=== PATIENT | male | born 1980 | race Caucasian/White ===

== ENCOUNTER 2017-06-24 10:41 | Emergency (ER) | payer MEDICARE, MEDICAID ==
[2017-06-24] MEDS ORDERED: DEXAMETHASONE 10 MG/ML VIAL PO STA (13:00)
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
[2017-06-24] MEDS ORDERED: CHERRY SYRUP 10 ML UDC PO ONE (13:14)
--- NOTE | 2017-06-24 13:40 | CT Report ---
EXAM: CT MAXILLOFACIAL WITHOUT CONTRAST EXAM DATE: 06/24/2017 12:38 PM. CLINICAL HISTORY: Mass in the left upper medial orbit. COMPARISONS: None. TECHNIQUE: Thin-section axial images were acquired of the face without contrast. Post-processing: Cor onal and sagittal reformats. Other: None. In accordance with CT protocol optimization, one or more of the following dose reduction techniques w ere utilized for this exam: automated exposure control, adjustment of mA and/or KV based on patient s ize, or use of iterative reconstructive technique. FINDINGS: Soft Tissue: The infratemporal fossa and parapharyngeal spaces are unremarkable. Orbits: Symmetric and unremarkable. Bones: Status post plate and screw fixation of the mandibular symphysis, anterior lateral wall right maxillary sinus, bilateral frontozygomatic sutures, superior medial wall left orbit, and anterior wal ls left and right paramedian frontal sinuses extending to the nasion. Additional screw fixation ante rior right maxillary alveolus. Multiple nasal fractures. There are multiple areas of bony dehiscence predominantly involving the frontal bone at the anterior galeano and floors of the left greater than r ight frontal sinuses, anterior superior orbital rims, and anterior aspect of the ethmoid sinuses. Th ere is soft tissue swelling overlying overlying the preseptal superior medial left orbit 4:117 throug h 127 which extends into the frontal sinus and may be related to prior sinus obliteration. The possib ility of superimposed infection or occluded nasolacrimal duct not excluded. The orbits themselves are symmetric with no evidence of retrobulbar pathology. Temporomandibular Joints: The temporomandibular joints are symmetric and normally located. Sinuses: Opacified frontal sinuses bilaterally. Scattered retention cysts and membrane thickening in the remaining paranasal sinuses.. Mastoid air cells and middle ear cavities clear. IMPRESSION: Extensive posttraumatic and postsurgical changes involving the facial bones. 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 There is increased soft tissue density in the preseptal region anterior to the superior medial left orbit which appears continuous with the frontal sinus material likely related to herniation of the sinus contents. Superimposed infection or left nasal lacrimal duct occlusion not excluded. The orbital contents are symmetric and unremarkable bilaterally. [facility] Referring Provider Line: [phone] SITE ID: [id number]
[2017-06-24 14:01] VITALS: BP 132/88
== END 2017-06-24 14:30 | disposition home or self-care (01) ==
LOC: ED 10:41
DX: J01.11 Acute recurrent frontal sinusitis (principal); J45.909 Unspecified asthma, uncomplicated
CPT/HCPCS: 70486; 93005; 99283; A9270

== ENCOUNTER 2021-11-06 11:28 | Outpatient (CLI) | payer MEDICARE, MEDICAID ==
[2021-11-06 23:36] LABS: CHLAMYDIA TRACHOMATIS DNA NEGATIVE (NEGATIVE); NEISSERIA GONORRHOEAE DNA NEGATIVE (NEGATIVE)
[2021-11-07 05:10] LABS: RPR Non Reactive (Non Reactive)
[2021-11-07 06:09] LABS: HCV AB <0.1 s/co ratio (0.0-0.9)
[2021-11-07 08:09] LABS: HSV 1 IGG TYPE SPEC <0.91 index (0.00-0.90); HSV 2 IGG TYPE SPEC <0.91 index (0.00-0.90)
[2021-11-09 03:09] LABS: HIV SCREEN 4TH GENERATION Non Reactive (Non Reactive)
== END 2021-11-06 11:29 | disposition home or self-care (01) ==
LOC: LAB.S 11:28
PROVIDERS: ATTEND Physician Assistant
DX: N48.1 Balanitis (principal); Z11.3 Encounter for screening for infections with a predominantly sexual mode of transmission
CPT/HCPCS: 36415; 81599; 86592; 86695; 86696; 86803; 87491; 87591; G0475; 87389; 87661

== ENCOUNTER 2023-05-23 12:27 | Outpatient (CLI) | payer MEDICARE, MEDICAID ==
[2023-05-23 14:38] LABS: BASOPHILS # (AUTO) 0.1 10^3/uL (0.0-0.1); BASOPHILS % (AUTO) 0.9 %; EOSINOPHILS # (AUTO) 0.3 10^3/uL (0.0-0.7); EOSINOPHILS % (AUTO) 3.3 %; HCT - HEMATOCRIT 46.7 % (42.0-52.0); HGB - HEMOGLOBIN 15.7 g/dL (14.0-18.0); LYMPHOCYTES # (AUTO) 1.5 10^3/uL (1.5-3.5); LYMPHOCYTES % (AUTO) 20.2 %; MEAN CORPUSCULAR HEMOGLOBIN 31.5 pg (27.0-31.0); MEAN CORPUSCULAR HGB CONC 33.6 g/dL (32.0-36.0); MEAN CORPUSCULAR VOLUME 93.6 fL (80.0-94.0); MEAN PLATELET VOLUME 10.4 fL (7.4-11.4); MONOCYTES # (AUTO) 0.7 10^3/uL (0.0-1.0); MONOCYTES % (AUTO) 8.6 %; NEUTROPHILS % (AUTO) 66.2 %; PLT - PLATELET COUNT 205 10^3/uL (130-450); RED BLOOD COUNT 4.99 10^6/uL (4.70-6.10); RED CELL DISTRIBUTION WIDTH 12.9 % (12.0-15.0); WHITE BLOOD COUNT 7.5 x10^3/uL (4.8-10.8)
[2023-05-23 16:18] LABS: ALBUMIN 4.7 g/dL (3.2-5.5); ALBUMIN/GLOBULIN RATIO 1.7 (1.0-2.2); ALKALINE PHOSPHATASE 62 IU/L (42-121); ALT ALANINE AMINOTRANSFERASE 36 IU/L (10-60); AST ASPARTATE AMINOTRANSFERASE 22 IU/L (10-42); BILIRUBIN,TOTAL 0.7 mg/dL (0.2-1.0); BUN - BLOOD UREA NITROGEN 13 mg/dL (6-20); CALCIUM 9.7 mg/dL (8.5-10.3); CARBON DIOXIDE - CO2 28 mmol/L (21-32); CHLORIDE 103 mmol/L (101-111); CHOLESTEROL 261 mg/dL; CREATININE 0.7 mg/dL (0.6-1.3); GFR - MDRD 123 (>89); GLUCOSE 88 mg/dL (74-104); HDL CHOLESTEROL 52 mg/dL; LDL CHOLESTEROL,CALCULATED 152 mg/dL; LDL/HDL RATIO 2.9 (<3.6); POTASSIUM 4.3 mmol/L (3.5-4.5); SODIUM 138 mmol/L (135-145); TOTAL PROTEIN 7.4 g/dL (6.4-8.9); TRIGLYCERIDES 285 mg/dL (48-352); VLDL CHOLESTEROL 57 mg/dL
== END 2023-05-23 12:28 | disposition home or self-care (01) ==
LOC: LAB.S 12:27
PROVIDERS: ATTEND Physician Assistant Medical
DX: I10 Essential (primary) hypertension (principal); Z13.9 Encounter for screening, unspecified
CPT/HCPCS: 36415; 80053; 80061; 83721; 84443; 85025

== ENCOUNTER 2024-05-22 17:41 | Observation (INO) ==
[2024-05-22 18:06] LABS: BASOPHILS # (AUTO) 0.1 10^3/uL (0.0-0.1); BASOPHILS % (AUTO) 0.5 %; EOSINOPHILS # (AUTO) 0.3 10^3/uL (0.0-0.7); EOSINOPHILS % (AUTO) 1.9 %; HCT - HEMATOCRIT 45.1 % (42.0-52.0); HGB - HEMOGLOBIN 15.8 g/dL (14.0-18.0); LYMPHOCYTES # (AUTO) 1.8 10^3/uL (1.5-3.5); LYMPHOCYTES % (AUTO) 13.6 %; MEAN CORPUSCULAR HEMOGLOBIN 31.7 pg (27.0-31.0); MEAN CORPUSCULAR VOLUME 90.4 fL (80.0-94.0); MEAN PLATELET VOLUME 9.9 fL (7.4-11.4); MONOCYTES # (AUTO) 1.1 10^3/uL (0.0-1.0); MONOCYTES % (AUTO) 8.1 %; NEUTROPHILS % (AUTO) 75.3 %; PLT - PLATELET COUNT 270 10^3/uL (130-450); RED BLOOD COUNT 4.99 10^6/uL (4.70-6.10); RED CELL DISTRIBUTION WIDTH 12.7 % (12.0-15.0); WHITE BLOOD COUNT 13.2 x10^3/uL (4.8-10.8)
--- NOTE | 2024-05-22 18:12 | ED Physician Documentation ---
History of Present Illness Stated complaint Stated Complaint: ABD PX/N Chief complaint Chief Complaint: Abd Pain History obtained from History obtained from: Patient History of Present Illness Timing: Prior to arrival Additonal information Additional information: . Patient is a 43-year-old male presenting to the emergency department with lower abdominal bloating and nausea. Symptoms have been going on for about 1 day. He notes he was feeling a little uncomfortable the last few days but symptoms significantly worsened today. He has a history of a kidney stone as well as history of IBS. He notes symptoms feel similar to both but significantly worse than his regular IBS symptoms. He is not taking medications at home. He has not taken anything for his symptoms. No vomiting but multiple episodes of diarrhea today. This is not abnormal for his symptoms of IBS though no black bloody stools. Patient was able to eat chicken noodle soup and a croissant earlier today. No fevers chills viral URI symptoms. No history of abdominal surgeries. He is urinating normally. Meds/Allgy Home Medications Ambulatory Orders Medication Instructions Recorded Confirmed amoxicillin 875 mg-potassium 1 ea PO Q12H #20 tabs 06/24/17 clavulanate 125 mg tablet Allergies Allergies Allergy/AdvReac Type Severity Reaction Status Date / Time No Known Drug Allergies Allergy Verified 05/22/24 17:48 PFSH Social History Social History Smoking Status: Never smoker Do you feel safe in your home environment?: Yes Suffered physical, verbal, emotional, or financial abuse?: No Exam Constitutional normal general appearance HENMT normocephalic and head/scalp atraumatic Eyes PERRL, EOMs intact bilaterally and conjunctivae normal Neck/C-Spine visual inspection normal Lymph no lymphadenopathy noted Chest inspection of chest normal Respiratory breath sounds equal bilaterally, normal respiratory effort and clear to auscultation bilaterally Cardiovascular normal heart rate noted, regular rhythm noted, no gallop and no rub Gastrointestinal Abdomen is soft no rebound guarding active bowel sounds appreciated lower abdominal tenderness on palpation no CVA tenderness appreciated. Mild abdominal distention but no palpable fluid wave appreciated. Genitourinary no CVA tenderness Extremities normal to inspection Results Vitals Vitals: Vital Signs - 24 hr 05/22/24 17:46 05/22/24 18:34 05/22/24 19:29 Temperature 37.0 C Temperature Source Temporal Artery Scan Pulse Rate 62 Respiratory Rate 18 Blood Pressure 141/87 H O2 Saturation 99 O2 Source Room air Pain Intensity 7 8 5 05/22/24 19:59 05/22/24 21:00 05/22/24 21:17 Temperature Temperature Source Pulse Rate 60 Respiratory Rate 20 Blood Pressure 150/94 H O2 Saturation 96 O2 Source Room air Pain Intensity 5 5 05/22/24 21:18 05/22/24 21:57 05/22/24 22:40 Temperature Temperature Source Pulse Rate 65 Respiratory Rate 16 Blood Pressure 162/99 H O2 Saturation 99 O2 Source Pain Intensity 5 6 05/22/24 22:49 Temperature Temperature Source Pulse Rate Respiratory Rate Blood Pressure O2 Saturation O2 Source Pain Intensity 10 Oxygen O2 Source Room air Labs Labs: Laboratory Tests 05/22/24 05/22/24 17:59 18:15 WBC 13.2 H RBC 4.99 Hgb 15.8 Hct 45.1 MCV 90.4 MCH 31.7 H MCHC 35.0 RDW 12.7 Plt Count 270 MPV 9.9 Neut # (Auto) 10.0 H Lymph # (Auto) 1.8 Gulf # (Auto) 1.1 H Eos # (Auto) 0.3 Baso # (Auto) 0.1 Absolute Nucleated RBC 0.00 Nucleated RBC % 0.0 Sodium 139 Potassium 4.2 Chloride 107 Carbon Dioxide 22 Anion Gap 10.0 BUN 19 Creatinine 1.0 Estimated GFR (MDRD) 81 L Glucose 108 H Calcium 10.0 Total Bilirubin 0.7 AST 24 ALT 51 Alkaline Phosphatase 65 Total Protein 7.4 Albumin 4.9 Globulin 2.5 Albumin/Globulin Ratio 2.0 Lipase 18 Urine Color DARK YELLOW Urine Clarity SL. CLOUDY Urine pH 6.0 Ur Specific [place] >=1.030 H Urine Protein 100 H Urine Glucose (UA) NEGATIVE Urine Ketones TRACE Urine Occult Blood LARGE H Urine Nitrite NEGATIVE Urine Bilirubin NEGATIVE Urine Urobilinogen 0.2 (NORMAL) Ur Leukocyte Esterase NEGATIVE Urine RBC TNTC H Urine WBC 0-3 Ur Squamous Epith Cells RARE Squamous Urine Crystals 11-25 Ca Oxalate Urine Bacteria None Seen Urine Sperm PRESENT Ur Microscopic Review INDICATED Urine Culture Comments NOT INDICATED Rads (name of study) CT abdomen pelvis: Relevant Findings:: Final report received and EMP independent interpretation of test PD Medical Decision Making ED course Complexity details: reviewed old records and reviewed results ED course: Patient is a 43-year-old male presents to the ED with abdominal pain that started this morning notes it is in his lower abdomen as well as some nausea symptoms. He was feeling bloated the last few days as well but today symptoms significantly worsen of nephrolithiasis and IBS as well. Vitals here in the ED. Exam shows no tenderness but bilateral lower abdominal tenderness and mild abdominal distention on examination. Patient was given Toradol here in the ED. Labs here in the emergency department shows leukocytosis of 13. Hemoglobin is stable. CMP showed No significant SHIN or obstructive process no electrolyte abnormalities glucose levels stable no changes in LFTs or lipase.UA shows large amount of blood no significant leukocytes 11-25 calcium oxalate crystals. Patient was given of Toradol on arrival but continued to have pain a dose of morphine was given and Zofran for symptoms. Patient tolerated this well there was a delay in obtaining his CT scan but once it was obtained he did have a repeat episode of vomiting on return to the ED. He was given another dose of morphine and Zofran here in the ED for his symptoms. CT abdomen pelvis: Obstructing, 8 mm left proximal ureteral stone causing hydronephrosis and slight delay of left renal function. Cholelithiasis. Mild hepatic steatosis. Pelvic orthopedic hardware. Patient's pain uncontrolled with Toradol 2 doses of morphine and Dilaudid. Patient had episode of vomiting here in the ED after Zofran. Discussed Case with Dr. Jackson hospitalist she is agreeable with admission at this time. She notes urology should be made aware of patient as well. Dr. Saavedra Updated he is agreeable to see patient tomorrow morning recommending n.p.o. at midnight order has been placed and he will see patient in the morning.. Discharge Plan Discharge Patient Disposition: 66 [facility] DC/Xfer Condition: Good Clinical Impression: Urolithiasis, Abdominal pain Prescriptions: No Action amoxicillin-pot clavulanate 1 TAB tablet 1 ea PO Q12H Qty: 20 0RF Print Language: Yakut
[2024-05-22 18:22] LABS: ALBUMIN 4.9 g/dL (3.2-5.5); BILIRUBIN,TOTAL 0.7 mg/dL (0.2-1.0); POTASSIUM 4.2 mmol/L (3.5-4.5); TOTAL PROTEIN 7.4 g/dL (6.4-8.9)
[2024-05-22 18:28] LABS: BILIRUBIN,URINE NEGATIVE (NEGATIVE); GLUCOSE, URINE (UA) NEGATIVE (NEGATIVE); KETONES,URINE (UA) TRACE mg/dL (NEGATIVE); LEUKOCYTE ESTERASE, URINE NEGATIVE (NEGATIVE); NITRITE,URINE NEGATIVE (NEGATIVE); OCCULT BLOOD,URINE LARGE (NEGATIVE); PROTEIN,URINE 100 mg/dL (NEGATIVE); UROBILINOGEN,URINE 0.2 (NORMAL) E.U./dL (NORMAL)
[2024-05-22 18:31] LABS: CLARITY,URINE SL. CLOUDY (CLEAR)
[2024-05-22] MEDS: ONDANSETRON 4 MG/2 ML VIAL IVP STA ×2 (18:33→22:37)
[2024-05-22] MEDS: SODIUM CHLORIDE 0.9% 1,000 ML IV STA (18:34)
[2024-05-22] MEDS: KETOROLAC 15 MG/ML VIAL IVP STA (18:34)
[2024-05-22 18:52] LABS: BACTERIA,URINE None Seen /HPF (None Seen); CRYSTALS,URINE 11-25 Ca Oxalate /LPF; RBC,URINE TNTC /HPF (0-5); SPERM,URINE PRESENT; SQUAMOUS EPITHELIAL CELL,UR RARE Squamous (<= Few); WBC,URINE 0-3 /HPF (0-3)
[2024-05-22] MEDS: MORPHINE 2 MG/ML CARPUJECT IVP STA ×2 (19:59→21:57)
[2024-05-22] MEDS ORDERED: iohexoL-300 100 ML VIAL ONE (21:10)
[2024-05-22] MEDS: iohexoL-300 100 ML VIAL IVP ONE (21:38)
--- NOTE | 2024-05-22 22:37 | CT Report ---
PROCEDURE: CT Abdomen/Pelvis W INDICATIONS: lower abdominal pain and cramping CONTRAST: 100 ML OMNI 300 TECHNIQUE: After the administration of intravenous contrast, a CT scan of the abdomen and pelvis was performed. Images were recorded and evaluated at appropriate window settings. Reformats: coronal and sagittal. F or radiation dose reduction, the following was used: automated exposure control, adjustment of mA and /or kV according to patient size. COMPARISON: None. FINDINGS: Image quality: Diagnostic. Lower chest: Unremarkable. Liver: Mild steatosis. No enhancing mass. Gallbladder: Small gallstones are seen in the gallbladder neck. No significant gallbladder wall thick ening. Biliary tree: No intrahepatic or extrahepatic dilation, accounting for age. Spleen: No splenomegaly. Pancreas: No pancreatic ductal dilation. Adrenals: No adrenal nodule. Kidneys and ureters: Moderate left-sided hydronephrosis and slightly delayed left nephrogram. Mild le ft perinephric inflammation. There is hydroureter to the level of the proximal ureter at or there is a stone measuring 8 mm. Both distal ureters are nondistended. The right kidney demonstrates posterior cortical defect versus fat lesion. No solid renal masses. Occasional cortical cysts. Stomach, bowel and peritoneum: Stomach and small bowel are normal. Appendix is not seen. The colon is decompressed. No pathologic free fluid. Lymph nodes: No central or retroperitoneal adenopathy. Vessels: Normal caliber abdominal aorta, IVC, and portal vein. Patent portal vein. PELVIS Reproductive organs: Unremarkable. Bladder: No abnormal wall thickening, accounting for underdistention. Pelvic lymph nodes: No pelvic adenopathy by size criteria. Bones: No suspicious bone lesions. There are surgical changes of prior fracture fixation involving th e pubic bones, right superior pubic ramus, healed fracture of the right inferior pubic ramus, and sunshine ateral sacroiliac joint screws. Other: No significant ventral or inguinal hernia. IMPRESSION: Obstructing, 8 mm left proximal ureteral stone causing hydronephrosis and slight delay of left renal function. Cholelithiasis. Mild hepatic steatosis. Pelvic orthopedic hardware. Reviewed by: Ekaterina Hanson MD on 05/22/2024 10:35 PM PST Approved by: Ekaterina Hanson MD on 05/22/2024 10:35 PM PST Station ID: [id number]
[2024-05-22] MEDS: HYDROmorphone 0.5 MG/0.5 ML SYRINGE IVP STA (22:49)
--- NOTE | 2024-05-22 23:45 | HISTORY & PHYSICAL EXAMINATION ---
Chief Complaint Chief Complaint Chief Complaint: Abdo pain History of Present Illness Admitted From Admitted From:: ER History Obtained From Records Reviewed: Yes History obtained from: Pt, staff, chart Exam Limitations: Virtual exam History of Present Illness HPI Comment/Other: H&P was conducted via video remotely, using [employer]. Patient is in [place] Physician is in [place] Pt's partner Randi is at bedside. 43 yo M with h/o Nephrolithiasis x 1, C.Diff x 1, Borderline HTN (140s/90s; no meds), IBS presented to the ER with c/o 1 day h/o abdo pain, N/V/D. Pt has had URI symptoms x 5 days: chest congestion, cough, green sputum--these symptoms resolved today. He feels that he has been eating/drinking as usual. Today, at 2P, he had onset of abdominal pain: gradual, comes in waves, intermittent, increases in intensity. Pain is all around his mid-torso from front to back. Pain feels similar to kidney stone that he had 1x before about 6 years ago, which passed on its own. Pt has also had nausea with vomiting--non-bloody. Has had frequent loose stools today, none x few hours now. Ate meal before pain started; has not been able to eat since. In the ER, WBC 13.2, U/A: bld Ca Oxalate crystals CT abdo: Obstructing, 8 mm left proximal ureteral stone causing hydronephrosis and slight delay of left renal function. Cholelithiasis. Mild hepatic steatosis. Pelvic orthopedic hardware. Pt was given IVF, Zofran, Toradol, Morphine, and Dilaudid in the ER. Pt continues to have pain and nausea. ER Provider D/W Urologist, Dr. Saavedra. He will see pt in AM and recommends NPO p MN. Review of Systems Status of ROS: 10 or more systems reviewed and unremarkable except as noted in history and below PFSH Social History Social History Smoking Status: Never smoker Relationship: Do you feel safe in your home environment?: Yes Suffered physical, verbal, emotional, or financial abuse?: No POLST Patient has POLST: No Meds/Allgy Home Medications Ambulatory Orders Medication Instructions Recorded Confirmed amoxicillin 875 mg-potassium 1 ea PO Q12H #20 tabs 06/24/17 clavulanate 125 mg tablet Allergies Allergies Allergy/AdvReac Type Severity Reaction Status Date / Time No Known Drug Allergies Allergy Verified 05/22/24 17:48 Exam Constitutional normal general appearance and no apparent distress HENMT normocephalic Eyes EOMs intact bilaterally and no scleral icterus Respiratory cart stethoscope not working; per ER Provider: CTA B/L Cardiovascular cart stethoscope not working; per ER Provider: RRR, no murmurs Gastrointestinal per ER Provider: mildly distended, Soft, mild lower abdominal tenderness, no R/G, BS+ Genitourinary per ER Provider: no CVA tenderness Extremities per ER Provider: moves all extrem, no edema Neurology A+Ox3, normal speech, cooperative; per ER Provider: NFD Conclusion/Plan Problem List (1) Urolithiasis: Plan Obstructive Nephrolithiasis with HN Intractable abdo pain, N/V Calcium Oxalate crystals Leukocytosis H/o Nephrolithiasis -WBC 13.2, U/A: bld Ca Oxalate crystals -CT abdo: Obstructing, 8 mm left proximal ureteral stone causing hydronephrosis and slight delay of left renal function. Cholelithiasis. Mild hepatic steatosis. Pelvic orthopedic hardware. -Pt was given IVF, Zofran, Toradol, Morphine, and Dilaudid in the ER. -Pt continues to have pain and nausea. -ER Provider D/W Urologist, Dr. Saavedra. He will see pt in AM and recommends NPO p MN. -admit to Obs/MedSurg -IVF -NPO p MN -Flomax -pain control, anti-emetics PRN -no A/Bs px'd for now per pt's request d/t h/o CDiff -mgmt per Urologist H/o C.Diff x 1 -pt asks to defer A/Bs for now Borderline HTN (140s/90s; no meds) -continue to monitor IBS -supportive care VTE Prophylaxis: Lovenox Code Status: Full Code ~Erin Jackson MD Hospitalist I Lab Results Lab results reviewed: Yes 05/22/24 17:59 05/22/24 17:59
[2024-05-22] MEDS: TAMSULOSIN 0.4 MG CAPSULE PO SCH (23:55)
[2024-05-23] MEDS ORDERED: HYDROmorphone 0.5 MG/0.5 ML SYRINGE IVP PRN (00:37)
[2024-05-23] MEDS ORDERED: ACETAMINOPHEN 325 MG TABLET PO PRN (00:37)
[2024-05-23] MEDS ORDERED: ONDANSETRON 4 MG/2 ML VIAL IVP PRN (00:37)
[2024-05-23] MEDS ORDERED: oxyCODONE 5 MG TABLET PO PRN (00:37)
[2024-05-23] MEDS ORDERED: ONDANSETRON ODT 4 MG TABLET TL PRN (00:37)
[2024-05-23] MEDS: PROCHLORPERAZINE 10 MG/2 ML VIAL IVP PRN (01:20)
[2024-05-23] MEDS: SODIUM CHLORIDE 0.9% 1,000 ML IV SCH (01:20)
[2024-05-23] MEDS: SODIUM CHLORIDE FLUSH 0.9% 10 ML SYRINGE IVP SCH (01:21)
[2024-05-23 01:23] VITALS: O2SAT 96
[2024-05-23] MEDS: SODIUM CHLORIDE FLUSH 0.9% 10 ML SYRINGE IVP PRN (01:25)
[2024-05-23 04:58] LABS: BASOPHILS % (AUTO) 0.3 %; EOSINOPHILS # (AUTO) 0.2 10^3/uL (0.0-0.7); EOSINOPHILS % (AUTO) 1.3 %; HCT - HEMATOCRIT 42.4 % (42.0-52.0); HGB - HEMOGLOBIN 14.5 g/dL (14.0-18.0); LYMPHOCYTES # (AUTO) 1.7 10^3/uL (1.5-3.5); LYMPHOCYTES % (AUTO) 13.2 %; MEAN CORPUSCULAR HEMOGLOBIN 31.5 pg (27.0-31.0); MEAN CORPUSCULAR HGB CONC 34.2 g/dL (32.0-36.0); MEAN PLATELET VOLUME 9.8 fL (7.4-11.4); MONOCYTES # (AUTO) 1.2 10^3/uL (0.0-1.0); MONOCYTES % (AUTO) 9.6 %; NEUTROPHILS # (AUTO) 9.5 10^3/uL (1.5-6.6); PLT - PLATELET COUNT 199 10^3/uL (130-450); RED BLOOD COUNT 4.61 10^6/uL (4.70-6.10); RED CELL DISTRIBUTION WIDTH 12.8 % (12.0-15.0); WHITE BLOOD COUNT 12.6 x10^3/uL (4.8-10.8)
[2024-05-23 05:06] LABS: MAGNESIUM 1.9 mg/dL (1.7-2.3)
[2024-05-23 05:12] LABS: CALCIUM 8.7 mg/dL (8.5-10.3); CREATININE 0.9 mg/dL (0.6-1.3); POTASSIUM 3.9 mmol/L (3.5-4.5)
--- NOTE | 2024-05-23 07:38 | PREOP HISTORY & PHYSICAL ---
Surgical History & Physical Chief Complaint/HPI Chief Complaint: left flank pain History of Present Illness: Ilan is a 43-year-old male with no significant urological history presents with 1 day of left-sided flank pain abdominal pain and bloating. He has history of irritable bowel syndrome and thought this was a flareup of this. He had a CT scan performed in the emergency room which showed a left proximal 8 mm ureteral stone with ipsilateral hydronephrosis. He has no SHIN, no leukocytosis, however reportedly his pain was out of control and so he was admitted overnight for monitoring. He is n.p.o. He states overnight he had no pain. He does not want a procedure performed. He has not seen the stone pass. He states he had a 3 mm stone in the past Home Meds and Allergies Active Medications Generic Name Dose Route Start Last Admin Trade Name Freq PRN Reason Stop Dose Admin Acetaminophen 650 mg 05/23/24 00:37 Acetaminophen 325 Mg Tablet PO Q4HR PRN Pain 1 to 4, or Fever Enoxaparin Sodium 40 mg 05/23/24 09:00 05/23/24 08:31 Enoxaparin 40 Mg/0.4 Ml Syringe SUBQ Not Given DAILY DANUTA Hydromorphone HCl 0.5 mg 05/23/24 00:37 Hydromorphone 0.5 Mg/0.5 Ml Syringe IVP Q2H PRN Pain 8 to 10 Sodium Chloride 1,000 mls @ 100 mls/hr 05/23/24 00:37 05/23/24 07:39 Normal Saline 0.9% IV 100 mls/hr .Q10H DANUTA Infusion Ondansetron HCl 4 mg 05/23/24 00:37 Ondansetron 4 Mg/2 Ml Vial IVP Q6HR PRN Nausea / Vomiting Ondansetron HCl 4 mg 05/23/24 00:37 Ondansetron Odt 4 Mg Tablet TL Q6HR PRN Nausea / Vomiting Oxycodone HCl 10 mg 05/23/24 00:37 Oxycodone 5 Mg Tablet PO Q4HR PRN Pain 8 to 10 Prochlorperazine Edisylate 10 mg 05/23/24 00:37 05/23/24 01:20 Prochlorperazine 10 Mg/2 Ml Vial IVP 10 mg Q6HR PRN Administration Nausea / Vomiting Sodium Chloride 10 ml 05/23/24 00:37 05/23/24 01:25 Sodium Chloride Flush 0.9% 10 Ml Syringe IVP 10 ml PRN PRN Administration NEEDED PER PROVIDER ORDERS Sodium Chloride 10 ml 05/23/24 01:00 05/23/24 01:21 Sodium Chloride Flush 0.9% 10 Ml Syringe IVP 10 ml 0100,0900,1700 DANUTA Administration Tamsulosin HCl 0.4 mg 05/22/24 23:35 05/22/24 23:55 Tamsulosin 0.4 Mg Capsule PO 0.4 mg DAILY DANUTA Administration amoxicillin 875 mg-potassium clavulanate 125 mg tablet 1 ea PO Q12H #20 tabs 06/24/17 Allergies Allergy/AdvReac Type Severity Reaction Status Date / Time No Known Drug Allergies Allergy Verified 05/22/24 17:48 Vital Signs O2 Saturation: 96 Patient Review Patient Review Pertinent Tests Reviewed PFSH Social History Social History Smoking Status: Never smoker Second hand tobacco smoke exposure: No Do you dip or chew tobacco?: No Do you vape?: No Patient requests smoking cessation consult: No Relationship: Level: Independent Home Mobility Equipment: Cane Do you feel safe in your home environment?: Yes Suffered physical, verbal, emotional, or financial abuse?: No Substance Use: denies use POLST Patient has POLST: No Exam Exam NAD Assessment & Plan Assessment & Plan Assessment & Plan: Left 8mm ureteral stone, Unlikely to have passed but patient feels well We discussed the options of management including: Cystoscopy and left ureteral stent placement versus watchful waiting. We discussed the risk, benefits and alternatives of each. We discussed procedure risk of infection, bleeding, injury to adjacent structures, need for additional procedures with the stent. We also discussed the risk of possible sepsis and future pain with doing nothing. The patient would like to monitor for now. He is refusing to perform a procedure at this point We will send him home for expectant management I did make him aware that I am not available all the time I would be and I cannot guarantee to be available in the future if he has pain again. Patient states understanding and consents to plan
[2024-05-23] MEDS: ENOXAPARIN 40 MG/0.4 ML SYRINGE SUBQ SCH (08:31)
--- NOTE | 2024-05-23 08:50 | Discharge Summary ---
"Discharge Summary Admit Date: 05/22/24 Discharge Date: 05/23/24 Discharging Provider: Dr Saavedra Code Status: Attempt Resuscitation DIAGNOSES Admission Diagnoses: left ureteral stone Discharge Diagnoses with Status of Each Condition: left ureteral stone- unresolved HPI History of Present Illness: 43-year-old male with history of kidney stones presented with left flank pain was found to have an 8 mm proximal ureteral stone. He was admitted for pain control overnight and plan for procedure in the morning. CONSULTS | PROCEDURES Consultations: Urology Procedures: none HOSPITAL COURSE Hospital Course: Overnight he did quite well, and when reevaluated in the morning he stated he felt well and did not want to proceed with a procedure for his kidney stone. For this reason he was sent home ALLERGIES Allergies Allergy/AdvReac Type Severity Reaction Status Date / Time No Known Drug Allergies Allergy Verified 05/22/24 17:48 MEDICATIONS Ambulatory Orders Medication Instructions Recorded Confirmed tamsulosin 0.4 mg capsule 0.4 mg PO NIGHTLY #14 caps 05/23/24 PHYSICAL EXAM AT DISCHARGE General Appearance: positive No acute distress LABS 05/23/24 04:53 05/23/24 04:53 DIAGNOSTIC IMAGING Diagnostic Imaging Results: Read independently SEPSIS Current Stage of Sepsis: Ruled out FOLLOW UP Follow Up: will contact for followup with Dr Saavedra in the future TIME SPENT Time Spent in Discharge (Minutes): 15 Discharge Plan Discharge Patient Disposition: 01 Home, Self Care Condition: Good Prescriptions: New tamsulosin 0.4 mg capsule 0.4 mg PO NIGHTLY Qty: 14 0RF Discontinued amoxicillin-pot clavulanate 1 TAB tablet 1 ea PO Q12H Qty: 20 0RF Activity Restrictions/Additional Instructions: DIET - You may resume your normal diet if there is no nausea or vomiting. You may want to avoid spicy, greasy, or heavy foods today to minimize gas. - If nausea or vomiting occurs, don't eat or drink anything for one hour. Then start drinking small amounts of clear liquids. Later, add crackers, gradually building up to your usual diet. DISCHARGE INSTRUCTIONS * You still have a ureteral stone in place on the left side. You may notice pain and nausea and vomiting occasionally. You may see blood in the urine occasionally. This is normal. Take Tylenol or Motrin as needed for pain control * Call for fever greater than 100.4 Fahrenheit * Call for intractable pain, nausea or vomiting * You must follow-up with Dr. Saavedra to ensure stone passage in the future. Please call his office for follow-up sometime in the next 3 months MEDICATIONS * Take your normal medications Patient Date Escort Date RN Date Print Language: Malay Patient Instructions: Kidney Stones Risk, Kidney Stones Expectant Therapy, Kidney Stones Prevent, ED Stone Renal W Colic Stand Alone Forms: PCP List Follow-up Care: David Saavedra MD [Provider Admit Priv/Credential] - (call office for followup) Aliya Gary PA [Primary Care Provider] -"
[2024-05-23 09:56] VITALS: BP 144/93; TEMP 98.1
== END 2024-05-23 09:58 | disposition home or self-care (01) ==
LOC: ED 17:41 → MS2 17:41
PROVIDERS: ADMIT Internal Medicine; ATTEND Internal Medicine